=== PATIENT | male | born 1965 | race Caucasian/White ===

== ENCOUNTER → 2024-07-01 07:19 | Outpatient (REF) | payer BC, SELFPAY | LOC: HWRAD 07:19 | PROVIDERS: ATTENDING PHYSICIAN Internal Medicine Critical Care Medicine; FAMILY PHYSICIAN Family Medicine | DX: Z87.891 Personal history of nicotine dependence (principal) | CPT/HCPCS: 71271 ==

== ENCOUNTER → 2025-07-14 07:43 | Outpatient (REF) | payer BC, SELFPAY | LOC: HWRAD 07:43 | PROVIDERS: ATTENDING PHYSICIAN Internal Medicine Critical Care Medicine; FAMILY PHYSICIAN Family Medicine | DX: Z87.891 Personal history of nicotine dependence (principal) | CPT/HCPCS: 71271 ==